=== PATIENT | female | born 1990 | race Caucasian/White ===

== ENCOUNTER 2017-07-04 12:31 | Emergency (ER) | payer MEDICAID ==
--- NOTE | 2017-07-04 14:33 | ED Physician Documentation ---
PD HPI LOWER EXT INJURY - Stated complaint Stated Complaint: WOUND ON CHIN - Chief complaint Chief Complaint: Wound PD PAST MEDICAL HISTORY - Present Medications Home Medications: Ambulatory Orders Medication Instructions Recorded Confirmed Buprenorphine HCl/Naloxone HCl 07/04/17 [Suboxone 8 mg-2 mg Sl Film] - Allergies Allergies/Adverse Reactions: Allergies Allergy/AdvReac Type Severity Reaction Status Date / Time prochlorperazine AdvReac Severe Anaphylaxis Verified 07/04/17 12:40 [From Compazine] Results - Vitals Vitals: Vital Signs - 24 hr 07/04/17 12:36 Temperature 36.6 C Heart Rate 78 Respiratory 16 Rate Blood Pressure 101/59 L O2 Saturation 100 Oxygen O2 Source Room air
--- NOTE | 2017-07-04 14:33 | ED Physician Documentation ---
PD HPI SKIN - Stated complaint Stated Complaint: WOUND ON CHIN - Chief complaint Chief Complaint: Wound - History obtained from History obtained from: Patient - History of Present Illness Timing - onset: How many days ago (1-2) Timing - duration: Days (1-2) Timing - details: Abrupt onset Location: Face (has a sore on chin that is getting biggger quickly, similar to staph infections in the past. Small sore on forehead today as well.) Quality / character: Painful, Swelling. No: Vesicular, Draining Review of Systems Constitutional: denies: Fever, Chills Nose: denies: Rhinorrhea / runny nose, Congestion Throat: denies: Oral lesions / sores, Sore throat PD PAST MEDICAL HISTORY - Past Medical History Cardiovascular: None Respiratory: None Neuro: None Endocrine/Autoimmune: None - Present Medications Home Medications: Ambulatory Orders Medication Instructions Recorded Confirmed Buprenorphine HCl/Naloxone HCl 07/04/17 [Suboxone 8 mg-2 mg Sl Film] Chlorhexidine Gluconate [Hibiclens] 10 ml TP DAILY #473 ml 07/04/17 Doxycycline Monohydrate 100 mg PO BID #14 tablet 07/04/17 Mupirocin 1 applic TP TID #15 oint...g. 07/04/17 - Allergies Allergies/Adverse Reactions: Allergies Allergy/AdvReac Type Severity Reaction Status Date / Time prochlorperazine AdvReac Severe Anaphylaxis Verified 07/04/17 12:40 [From Compazine] PD ED PE NORMAL - Vitals Vital signs reviewed: Yes - General General: Alert and oriented X 3, No acute distress, Well developed/nourished - Neck Neck: Supple, no meningeal sign, No adenopathy - Derm Derm: Normal color, Warm and dry, Other (chin with small pimple sized lesion that is very tender. Not fluctuant. Forehead with small ulcerative type lesion with redness about 3 mm size. ) Results - Vitals Vitals: Oxygen O2 Source Room air PD MEDICAL DECISION MAKING - ED course Complexity details: considered differential (looks early staph abscess but not large enough for I&D. early ulcerative one on forehead as well. ), d/w patient Departure - Departure Disposition: 01 Home, Self Care Clinical Impression: Abscess of chin Condition: Stable Record reviewed to determine appropriate education?: Yes Instructions: ED Staph Infec Abx Tx Only Prescriptions: Chlorhexidine Gluconate [Hibiclens] 10 ml TP DAILY #473 ml Doxycycline Monohydrate 100 mg PO BID #14 tablet Mupirocin 1 applic TP TID #15 oint...g. Comments: Cleanse the sores with soap and water to 3 times daily and apply mupirocin antibiotic ointment. Also take doxycycline oral antibiotic for a week. This should clear up the recurrent infections. To reduce germs overall on your skin and subsequently less recurrent infection, use the Hibiclens body wash face and head to toe daily for a week and then once or twice a week after that and see if you have less recurrences. Discharge Date/Time: 07/04/17 15:33
[2017-07-04] MEDS ORDERED: DOXYCYCLINE 100 MG TABLET PO STA (14:51)
[2017-07-04] MEDS ORDERED: MUPIROCIN 2% OINT 1 GM TOP STA (14:51)
[2017-07-04 15:35] VITALS: BP 110/62
== END 2017-07-04 15:33 | disposition home or self-care (01) ==
LOC: ED 12:31
DX: L02.01 Cutaneous abscess of face (principal)
CPT/HCPCS: 99283; A9270

== ENCOUNTER 2017-09-24 16:28 | Emergency (ER) | payer MEDICAID ==
[2017-09-24 16:52] VITALS: BP 125/65
--- NOTE | 2017-09-24 18:20 | ED Physician Documentation ---
PD HPI SKIN - Stated complaint Stated Complaint: POSS STAPH - Chief complaint Chief Complaint: Wound - History obtained from History obtained from: Patient - History of Present Illness Timing - onset: Other (This is a 26-year-old woman with recurrent staph infections and she has increasing spots on her face and back. The remainder of her extremities are non-affected and she does not have any fevers. She has had good luck in the past with doxycycline, mupirocin and Hibiclens but she is out of mupirocin and Hibiclens.) Review of Systems Constitutional: denies: Fever, Chills GI: denies: Abdominal Pain, Nausea, Vomiting : reports: Control (iud). denies: Now EGA PD PAST MEDICAL HISTORY - Past Medical History Cardiovascular: None Respiratory: None Endocrine/Autoimmune: None - Past Surgical History Past Surgical History: No - Present Medications Home Medications: Ambulatory Orders Medication Instructions Recorded Confirmed Buprenorphine HCl/Naloxone HCl 07/04/17 [Suboxone 8 mg-2 mg Sl Film] Chlorhexidine Gluconate [Hibiclens] 10 ml TP DAILY #473 ml 07/04/17 Doxycycline Monohydrate 100 mg PO BID #14 tablet 07/04/17 Mupirocin 1 applic TP TID #15 oint...g. 07/04/17 Chlorhexidine Gluconate [Hibiclens] 5 ml TP DAILY #1 bot 09/24/17 Doxycycline Hyclate 100 mg PO BID #42 tablet 09/24/17 Mupirocin 1 gm CARMEN BID #2 tub 09/24/17 - Allergies Allergies/Adverse Reactions: Allergies Allergy/AdvReac Type Severity Reaction Status Date / Time prochlorperazine AdvReac Severe Anaphylaxis Verified 09/24/17 16:52 [From Compazine] - Social History Does the pt smoke?: Yes Smoking Status: Current every day smoker Does the pt drink ETOH?: No Does the pt have substance abuse?: No - Immunizations Immunizations are current?: Yes PD ED PE NORMAL - Vitals Vital signs reviewed: Yes - General General: Alert and oriented X 3, No acute distress - HEENT HEENT: PERRL, EOMI - Derm Derm: Other (She has multiple small pimple type lesions on the face and back, nothing evening drainage or that cellulitic.) - Neuro Neuro: Alert and oriented X 3, Normal speech Results - Vitals Vitals: Vital Signs - 24 hr 09/24/17 16:47 Temperature 36.8 C Heart Rate 74 Respiratory 16 Rate Blood Pressure 125/65 O2 Saturation 100 Oxygen O2 Source Room air PD MEDICAL DECISION MAKING - Sepsis Event Vital Signs: Vital Signs - 24 hr 09/24/17 16:47 Temperature 36.8 C Heart Rate 74 Respiratory 16 Rate Blood Pressure 125/65 O2 Saturation 100 Oxygen O2 Source Room air Departure - Departure Disposition: 01 Home, Self Care Clinical Impression: Multiple-resistant Staphylococcus aureus infection Condition: Good Record reviewed to determine appropriate education?: Yes Instructions: ED Staph Infec Abx Tx Only Prescriptions: Chlorhexidine Gluconate [Hibiclens] 5 ml TP DAILY #1 bot Doxycycline Hyclate 100 mg PO BID #42 tablet Mupirocin 1 gm CARMEN BID #2 tub Comments: Call your doctor to arrange a follow-up appointment, make the next available appointment. In the interim, return anytime if worse or if new symptoms develop.
== END 2017-09-24 18:23 | disposition home or self-care (01) ==
LOC: ED 16:28
DX: A49.01 Methicillin susceptible Staphylococcus aureus infection, unspecified site (principal); F17.200 Nicotine dependence, unspecified, uncomplicated
CPT/HCPCS: 99283

== ENCOUNTER 2018-02-23 14:43 | Emergency (ER) | payer MEDICAID ==
[2018-02-23 14:55] VITALS: BP 101/55
--- NOTE | 2018-02-23 15:26 | XRAY Report ---
Reason: pain /punched a wall. Procedure Date: 02/23/2018 Accession Number: [id number] / [id number] Procedure: XR - Hand 3 View RT CPT Code: FULL RESULT: EXAM: RIGHT HAND RADIOGRAPHY EXAM DATE: 02/23/2018 03:09 PM. CLINICAL HISTORY: Pain, punched a wall. COMPARISON: None. TECHNIQUE: 3 views. FINDINGS: Bones: Normal. No fractures or bone lesions. Joints: Normal. No subluxations. Soft Tissues: Normal. No soft tissue swelling. IMPRESSION: No fracture or dislocation is detected. RAD[facility]
--- NOTE | 2018-02-23 15:34 | ED Physician Documentation ---
PD HPI UPPER EXT INJURY - Stated complaint Stated Complaint: RT ARM PX - Chief complaint Chief Complaint: Ext Problem - History obtained from History obtained from: Patient - History of Present Illness Location: Right, Hand Timing - details: Abrupt onset Pain level max: 8 Pain level now: 4 Improved by: Rest, Immobilization Worsened by: Moving, Palpating Associated symptoms: Swelling, Discolored (bruising). No: Weakness, Numbness, Tingling - Additonal information Additional information: 27-year-old right-handed female status post punching a wall and doors several days ago at home. Continued swelling and pain today. She is right-handed. No numbness or tingling. Worse with movement and better with rest Review of Systems Constitutional: denies: Fever, Chills : denies: Now EGA Skin: denies: Rash Musculoskeletal: denies: Neck pain, Back pain PD PAST MEDICAL HISTORY - Past Medical History Cardiovascular: None Respiratory: None Endocrine/Autoimmune: None - Past Surgical History Past Surgical History: No - Present Medications Home Medications: Ambulatory Orders Medication Instructions Recorded Confirmed Buprenorphine HCl/Naloxone HCl 07/04/17 [Suboxone 8 mg-2 mg Sl Film] Chlorhexidine Gluconate [Hibiclens] 10 ml TP DAILY #473 ml 07/04/17 Doxycycline Monohydrate 100 mg PO BID #14 tablet 07/04/17 Mupirocin 1 applic TP TID #15 oint...g. 07/04/17 Chlorhexidine Gluconate [Hibiclens] 5 ml TP DAILY #1 bot 09/24/17 Doxycycline Hyclate 100 mg PO BID #42 tablet 09/24/17 Mupirocin 1 gm CARMEN BID #2 tub 09/24/17 - Allergies Allergies/Adverse Reactions: Allergies Allergy/AdvReac Type Severity Reaction Status Date / Time prochlorperazine AdvReac Severe Anaphylaxis Verified 02/23/18 14:55 [From Compazine] - Social History Does the pt smoke?: Yes Smoking Status: Current every day smoker Does the pt drink ETOH?: No Does the pt have substance abuse?: No - Immunizations Immunizations are current?: Yes PD ED PE NORMAL - Vitals Vital signs reviewed: Yes - General General: Alert and oriented X 3, No acute distress - Derm Derm: Warm and dry - Extremities Extremities: Other (R hand - TTP over the dorsum of the hand, mild swelling and bruising. No tenderness over the wrist or remainder of the forearm. No snuffbox tenderness. Neurovascularly intact) - Neuro Neuro: Alert and oriented X 3 - Psych Psych: Normal mood Results - Vitals Vitals: Vital Signs - 24 hr 02/23/18 14:53 Temperature 36.4 C L Heart Rate 73 Respiratory 14 Rate Blood Pressure 101/55 L O2 Saturation 100 Oxygen O2 Source Room air - Rads (name of study) Right hand x-ray Radiology: Prelim report reviewed, EMP read contemporaneously, See rad report (No acute fracture or dislocation) Procedures - Splint (location) R forearm Splint applied by: Physician, Tech Type of splint: Fiberglass, Short arm Other: Patient tolerated well, No complications, Neurovascular intact PD MEDICAL DECISION MAKING - ED course Complexity details: reviewed results, re-evaluated patient, considered differential, d/w patient ED course: 27-year-old female with a right hand contusion versus sprain. No acute findings on x-ray. Placed in a volar splint for comfort. Will continue supportive care and follow-up with her doctor. Patient counseled regarding signs and symptoms for which I believe and urgent re-evaluation would be necessary. Patient with good understanding of and agreement to plan and is comfortable going home at this time This document was made in part using voice recognition software. While efforts are made to proofread this document, sound alike and grammatical errors may occur. Departure - Departure Disposition: 01 Home, Self Care Clinical Impression: Contusion of hand, right Qualifiers: Encounter type: initial encounter Qualified Code(s): S60.221A - Contusion of right hand, initial encounter Condition: Good Instructions: ED Sprain Hand Follow-Up: your,doctor in 1 week [Other] Comments: Wear the splint as needed to help with pain. Return if you worsen. Your x-rays are normal today. If you are still having pain in 1 week, you should be reevaluated by your doctor. Do not wear the splint for more than a week
== END 2018-02-23 15:48 | disposition home or self-care (01) ==
LOC: ED 14:43
DX: S60.221A Contusion of right hand, initial encounter (principal); W22.09XA Striking against other stationary object, initial encounter; Y92.009 Unspecified place in unspecified non-institutional (private) residence as the place of occurrence of the external cause; F17.200 Nicotine dependence, unspecified, uncomplicated
CPT/HCPCS: 29125; 99282

== ENCOUNTER 2018-03-03 18:47 | Emergency (ER) | payer MEDICAID ==
[2018-03-03 18:56] VITALS: BP 99/56
--- NOTE | 2018-03-03 19:35 | ED Physician Documentation ---
PD HPI UPPER EXT INJURY - Stated complaint Stated Complaint: HAND PX - Chief complaint Chief Complaint: Ext Problem - History obtained from History obtained from: Patient - History of Present Illness Location: Right, Hand Type of injury: Other (punched a door) Where injury occurred: Home Timing - onset: How many weeks ago (1.5) Timing - duration: Weeks (1.5) Timing - details: Abrupt onset Pain level max: 9 Pain level now: 8 Improved by: Rest, Ice, Immobilization Worsened by: Moving, Palpating Associated symptoms: No: Weakness, Numbness, Tingling, Swelling Contributing factors: No: Anticoagulated Similar symptoms before: Diagnosis (hand sprain) Recently seen: Emergency Dept (last week, negative xrays. felt better in splint, increased pain with removal of splint.) Review of Systems : denies: Now EGA Musculoskeletal: denies: Neck pain, Back pain Neurologic: denies: Focal weakness, Numbness PD PAST MEDICAL HISTORY - Past Medical History Cardiovascular: None Respiratory: None Neuro: None Endocrine/Autoimmune: None GI: None CIGAR HEAD PIERCER: None : None HEENT: None Psych: None Musculoskeletal: None Derm: None - Past Surgical History Past Surgical History: No - Present Medications Home Medications: Ambulatory Orders Medication Instructions Recorded Confirmed Buprenorphine HCl/Naloxone HCl 1 07/04/17 [Suboxone 8 mg-2 mg Sl Film] Meloxicam [Mobic] 15 mg PO DAILY PRN #20 tablet 03/03/18 - Allergies Allergies/Adverse Reactions: Allergies Allergy/AdvReac Type Severity Reaction Status Date / Time prochlorperazine AdvReac Severe Anaphylaxis Verified 03/03/18 18:55 [From Compazine] - Social History Does the pt smoke?: Yes Smoking Status: Current every day smoker Does the pt drink ETOH?: No Does the pt have substance abuse?: No - Immunizations Immunizations are current?: Yes - POLST Patient has POLST: No PD ED PE NORMAL - Vitals Vital signs reviewed: Yes - General General: Alert and oriented X 3, No acute distress - Derm Derm: Warm and dry - Extremities Extremities: Other (R hand - Tender palpation over the fourth metacarpal as well as the third MCP joint. No deformity. Neurovascular intact) - Neuro Neuro: Alert and oriented X 3 Results - Vitals Vitals: Vital Signs - 24 hr 03/03/18 18:53 Temperature 36.4 C L Heart Rate 89 Respiratory 16 Rate Blood Pressure 99/56 L O2 Saturation 100 Oxygen O2 Source Room air - Rads (name of study) Right hand x-ray Radiology: Prelim report reviewed, EMP read contemporaneously, See rad report (No acute bony abnormality) Procedures - Splint (location) Right hand Splint applied by: Physician, Tech Type of splint: Fiberglass, Short arm, Volar cock up Other: Patient tolerated well, No complications, Neurovascular intact PD MEDICAL DECISION MAKING - ED course Complexity details: reviewed old records, reviewed results, re-evaluated patient, considered differential, d/w patient ED course: 27-year-old female with a right hand sprain. No acute findings on x-ray. Placed in a volar splint for comfort. Neurovascularly intact. No deformity. Patient counseled regarding signs and symptoms for which I believe and urgent re-evaluation would be necessary. Patient with good understanding of and agreement to plan and is comfortable going home at this time This document was made in part using voice recognition software. While efforts are made to proofread this document, sound alike and grammatical errors may occur. Departure - Departure Disposition: 01 Home, Self Care Clinical Impression: Sprain of hand, right Qualifiers: Encounter type: initial encounter Qualified Code(s): S63.91XA - Sprain of unspecified part of right wrist and hand, initial encounter Condition: Good Instructions: ED Sprain Hand Follow-Up: Provider,Other [Primary Care Provider] - Within 1 week Prescriptions: Meloxicam [Mobic] 15 mg PO DAILY PRN #20 tablet PRN Reason: pain Comments: Your xrays are normal tonight. Wear the splint as needed to help with the pain. Discharge Date/Time: 03/03/18 20:36
[2018-03-03] MEDS ORDERED: MELOXICAM 7.5 MG TABLET PO STA (20:00)
--- NOTE | 2018-03-03 20:10 | XRAY Report ---
Reason: R hand pain s/p punching a door 1.5 weeks ago Procedure Date: 03/03/2018 Accession Number: [id number] / [id number] Procedure: XR - Hand 3 View RT CPT Code: FULL RESULT: EXAM: RIGHT HAND RADIOGRAPHY EXAM DATE: 03/03/2018 07:36 PM. CLINICAL HISTORY: R hand pain s/p punching a door 1. 5 weeks ago. COMPARISON: HAND 3 VIEW RT 02/23/2018 3:09 PM. TECHNIQUE: 3 views. FINDINGS: Bones: Normal. No fractures or bone lesions. Joints: Normal. No subluxations. Soft Tissues: Normal. No soft tissue swelling. IMPRESSION: Normal hand radiography. [facility]
== END 2018-03-03 20:36 | disposition home or self-care (01) ==
LOC: ED 18:47
DX: S63.91XA Sprain of unspecified part of right wrist and hand, initial encounter (principal); W22.09XA Striking against other stationary object, initial encounter; Y92.009 Unspecified place in unspecified non-institutional (private) residence as the place of occurrence of the external cause; F17.200 Nicotine dependence, unspecified, uncomplicated
CPT/HCPCS: 29125; 99281; 99283